=== PATIENT | female | born 1940 | race Two or more races ===

== ENCOUNTER 2020-10-07 11:23 | Emergency (ER) | payer MEDICAID, OTHER ==
[~2020-10-07] VITALS: Ht 157.5 cm; Wt 72.6 kg
[2020-10-07 12:19] LABS: Basophils # (auto) 0.1 10 ^3/uL (0-0.2); Basophils % (auto) 0.7 % (0.0-2.0); Eosinophils # (auto) 0.1 10 ^3/uL (0-0.8); Eosinophils % (auto) 1.2 % (0.0-7.0); Hematocrit 41.6 % (36.0-46.0); Hemoglobin 14.1 g/dL (12.2-16.2); Lymphocytes # (auto) 2.5 10 ^3/uL (0.4-5.4); Lymphocytes % (auto) 25.1 % (10.0-50.0); Mean Corpuscular Hgb Conc. 33.8 g/dL (32.0-36.0); Mean Corpuscular Volume 85.9 fL (80.0-100.0); Monocytes # (auto) 0.7 10 ^3/uL (0-1.3); Monocytes % (auto) 6.9 % (0.0-12.0); Neutrophils # (auto) 6.6 10 ^3/uL (1.6-8.6); Neutrophils % (auto) 66.1 % (37.0-80.0); Platelet Count (auto) 312 10^3/uL (140-450); Red Blood Cells 4.85 10^6/uL (4.0-5.20); Red Cell Distribution Width 15.6 % (11.8-14.3); White Blood Cell 9.9 10^3/uL (4.4-10.8)
[2020-10-07 12:37] LABS: Chloride 111 mmol/L (98-107); Potassium 3.9 mmol/L (3.5-5.1); Sodium 141 mmol/L (136-145)
[2020-10-07 12:57] LABS: Alanine Aminotransferase 24 U/L (13-56); Albumin 3.4 g/dL (3.4-5.0); Alkaline Phosphatase 106 U/L (45-117); Anion Gap 5 (5-15); Aspartate Aminotransferase 18 U/L (15-37); Bilirubin, Total 0.3 mg/dL (0.2-1.0); Blood Urea Nitrogen 9 mg/dL (7-18); Calcium 8.3 mg/dL (8.5-10.1); Carbon Dioxide 25 mmol/L (21-32); GFR African American 143 mL/min; GFR Non-African American 118 mL/min; Glucose 143 mg/dL (74-106); Total Protein 7.1 g/dL (6.4-8.2)
[2020-10-07 14:00] VITALS: BP 150/67
== END 2020-10-07 14:03 | disposition home or self-care (01) ==
LOC: ER 11:23
DX: R31.9 Hematuria, unspecified (principal); R73.9 Hyperglycemia, unspecified; R10.30 Lower abdominal pain, unspecified
CPT/HCPCS: 36415; 74176; 80053; 84484; 85025; 85049; 93005